=== PATIENT | female | born 1960 | race Caucasian/White ===

== ENCOUNTER 2022-09-27 20:10 | Observation (INO) | payer BC ==
--- NOTE | 2022-09-27 20:48 | ED ---
Abdominal Pain HPI - General Chief Complaint: Abdominal Pain Stated Complaint: Mass on groin Time Seen by Provider: 09/27/22 20:33 Source: patient, RN notes reviewed Mode of arrival: ambulatory Limitations: no limitations - History of Present Illness Initial Comments: This is a 62-year-old female who presents to the emergency department for abdominal pain and swelling. States that yesterday when she woke up, she had a large bulge in her lower abdomen and pelvis area. States that this was at least the size of a baseball. It was also very painful. Throughout the day, it started to shrink. She called EMS and was taken to [facility]. States that she waited for 6 hours and ended up leaving before anything could be done. States that the mass has since resolved, but she wants to know what it was. Denies any history of similar symptoms in the past. Denies any history of abdominal surgeries. She has no nausea, vomiting, diarrhea, or constipation. Currently asymptomatic and not experiencing any pain. Denies any fevers, chills, sore throat, cough, dyspnea, chest pain, palpitations, nausea, vomiting, diarrhea, back pain, or headaches. MD Complaint: abdominal pain - Related Data Allergies Allergy/AdvReac Type Severity Reaction Status Date / Time Penicillins Allergy Unknown Verified 09/27/22 20:18 Childhood Review of Systems ROS Statement: Those systems with pertinent positive or pertinent negative responses have been documented in the HPI. ROS Other: All systems not noted in ROS Statement are negative. Past Medical History Past Medical History: Hypertension, Thyroid Disorder History of Any Multi-Drug Resistant Organisms: None Reported Past Surgical History: Joint Replacement Additional Past Surgical History / Comment(s): meredith hip Past Psychological History: No Psychological Hx Reported Smoking Status: Current every day smoker Past Alcohol Use History: None Reported Past Drug Use History: Marijuana General Exam Limitations: no limitations General appearance: alert, in no apparent distress Head exam: Present: atraumatic, normocephalic, normal inspection Respiratory exam: Present: normal lung sounds bilaterally. Absent: respiratory distress, wheezes, rales, rhonchi, stridor Cardiovascular Exam: Present: regular rate, normal rhythm, normal heart sounds. Absent: systolic murmur, diastolic murmur, rubs, gallop, clicks GI/Abdominal exam: Present: soft, normal bowel sounds. Absent: distended, tenderness, guarding, rebound, rigid Neurological exam: Present: alert, oriented X3, CN II-XII intact Psychiatric exam: Present: normal affect, normal mood Skin exam: Present: warm, dry, intact, normal color. Absent: rash Course Vital Signs 09/27/22 09/27/22 20:12 22:05 Temperature 98.3 F Pulse Rate 93 80 Respiratory 20 18 Rate Blood Pressure 169/88 161/91 O2 Sat by Pulse 96 96 Oximetry Medical Decision Making - Medical Decision Making This is a 62-year-old female who presents to the emergency department for abdominal pain. Was pt. sent in by a medical professional or institution? @ -No Did you speak to anyone other than the patient for history? @ -Her daughter Did you review nursing and triage notes? @ -Yes, and I agree, it is accurate with regards to the patient's symptoms. Were old charts reviewed? @ -No Differential Diagnosis? @ -Differential Abdominal Pain Women: Appendicitis, Cholecystitis, diverticulosis, ischemic bowel, pancreatitis, hepatitis, UTI, gastroenteritis, AAA, incarcerated hernia, bowel obstruction, constipation, inflammatory bowel, hepatitis, peptic ulcer disease, splenic infarction, perforated viscus, vulvitis, ovarian torsion, PID, kidney stone, p lacenta abruption, this is not meant to be an all-inclusive list CT interpreted by me (1pt min.)? @ -Computed tomography scan of the abdomen and pelvis obtained. My interpretation identifies an incarcerated left inguinal hernia. What testing was considered but not performed? (CT, X-rays, U/S, labs)? Why? @ -None What meds were considered but not given? Why? @ -None Did you discuss the management of the patient with other professionals? @ -Yes, Dr. Cardenas who accepts the patient for admission and requests she be kept NPO. Did you reconcile home meds? @ -No Was smoking cessation discussed for >3mins.? @ -No Was critical care preformed (if so, how long)? @ -No Were there social determinants of health that impacted care today? How? (Homelessness, low income, unemployed, alcoholism, drug addiction, transportat ion, low edu. Level, literacy, decrease access to med. care, [facility], rehab)? @ -No Was there de-escalation of care discussed even if they declined? (Discuss DNR or withdrawal of care, Hospice)? @ -No What co-morbidities impacted this encounter? (DM, HTN, Smoking, COPD, CAD, Cancer, CVA, Hep., AIDS, mental health diagnosis, sleep apnea, morbid obesity)? @ -None Was patient admitted / discharged? @ -Admitted. Lab work obtained revealing minor leukocytosis, and was otherwise nonactionable. Computed tomography scan of the abdomen and pelvis obtained revealing an incarcerated left inguinal hernia containing small bowel loops. No evidence of small bowel obstruction. Patient currently asymptomatic. However, this morning she could not move or get off of the floor because of the severity of her pain. Patient currently has no bulges or palpable hernias on exam. Case discussed with Dr. Cardenas, who will admit patient and evaluate her in the morning. Will keep patient NPO for the meantime as well. EM consulted for medical management. Undiagnosed new problem with uncertain prognosis? @ -None Drug Therapy requiring intensive monitoring for toxicity (Heparin, Nitro, Insulin, Cardizem)? @ -None Were any procedures done? @ -None Diagnosis/symptom? @ -Incarcerated left inguinal hernia Acute, or Chronic, or Acute on Chronic? @ -Acute Uncomplicated (without systemic symptoms) or Complicated (systemic symptoms)? @ -Complicated Side effects of treatment? @ -None Exacerbation, Progression, or Severe Exacerbation] @ -Not applicable Poses a threat to life or bodily function? @ -Yes This case was discussed in detail with the attending ED physician, Dr. Raya. Presentation, findings, and treatment plan discussed in detail as well. - Lab Data Result diagrams: 09/27/22 20:51 09/27/22 20:51 Lab Results 09/27/22 09/27/22 09/27/22 Range/Units 20:51 20:51 20:51 WBC 12.5 H (3.8-10.6) k/uL RBC 4.81 (3.80-5.40) m/uL Hgb 15.0 (11.4-16.0) gm/dL Hct 44.3 (34.0-46.0) % MCV 92.1 (80.0-100.0) fL MCH 31.3 (25.0-35.0) pg MCHC 34.0 (31.0-37.0) g/dL RDW 11.9 (11.5-15.5) % Plt Count 341 (150-450) k/uL MPV 7.4 Neutrophils % 71 % Lymphocytes % 23 % Monocytes % 3 % Eosinophils % 1 % Basophils % 0 % Neutrophils # 8.9 H (1.3-7.7) k/uL Lymphocytes # 2.9 (1.0-4.8) k/uL Monocytes # 0.4 (0-1.0) k/uL Eosinophils # 0.1 (0-0.7) k/uL Basophils # 0.0 (0-0.2) k/uL Sodium 131 L (137-145) mmol/L Potassium 3.6 (3.5-5.1) mmol/L Chloride 98 (98-107) mmol/L Carbon Dioxide 24 (22-30) mmol/L Anion Gap 9 mmol/L BUN 8 (7-17) mg/dL Creatinine 0.46 L (0.52-1.04) mg/dL Est GFR (CKD-EPI)AfAm >90 (>60 ml/min/1.73 sqM) Est GFR (CKD-EPI)NonAf >90 (>60 ml/min/1.73 sqM) Glucose 116 H (74-99) mg/dL Plasma Lactic Acid Marc (0.7-2.0) mmol/L Calcium 9.2 (8.4-10.2) mg/dL Total Bilirubin 0.5 (0.2-1.3) mg/dL AST 26 (14-36) U/L ALT 25 (4-34) U/L Alkaline Phosphatase 82 (38-126) U/L C-Reactive Protein 1.2 H (<1.0) mg/dL Total Protein 6.6 (6.3-8.2) g/dL Albumin 3.8 (3.5-5.0) g/dL Urine Color Colorless Urine Appearance Clear (Clear) Urine pH 6.0 (5.0-8.0) Ur Specific [place] 1.017 (1.001-1.035) Urine Protein Negative (Negative) Urine Glucose (UA) Negative (Negative) Urine Ketones Negative (Negative) Urine Blood Trace H (Negative) Urine Nitrite Negative (Negative) Urine Bilirubin Negative (Negative) Urine Urobilinogen <2.0 (<2.0) mg/dL Ur Leukocyte Esterase Negative (Negative) Urine RBC 1 (0-5) /hpf Urine WBC 1 (0-5) /hpf Ur Squamous Epith Cells <1 (0-4) /hpf 09/27/22 Range/Units 20:51 WBC (3.8-10.6) k/uL RBC (3.80-5.40) m/uL Hgb (11.4-16.0) gm/dL Hct (34.0-46.0) % MCV (80.0-100.0) fL MCH (25.0-35.0) pg MCHC (31.0-37.0) g/dL RDW (11.5-15.5) % Plt Count (150-450) k/uL MPV Neutrophils % % Lymphocytes % % Monocytes % % Eosinophils % % Basophils % % Neutrophils # (1.3-7.7) k/uL Lymphocytes # (1.0-4.8) k/uL Monocytes # (0-1.0) k/uL Eosinophils # (0-0.7) k/uL Basophils # (0-0.2) k/uL Sodium (137-145) mmol/L Potassium (3.5-5.1) mmol/L Chloride (98-107) mmol/L Carbon Dioxide (22-30) mmol/L Anion Gap mmol/L BUN (7-17) mg/dL Creatinine (0.52-1.04) mg/dL Est GFR (CKD-EPI)AfAm (>60 ml/min/1.73 sqM) Est GFR (CKD-EPI)NonAf (>60 ml/min/1.73 sqM) Glucose (74-99) mg/dL Plasma Lactic Acid Marc 1.1 (0.7-2.0) mmol/L Calcium (8.4-10.2) mg/dL Total Bilirubin (0.2-1.3) mg/dL AST (14-36) U/L ALT (4-34) U/L Alkaline Phosphatase (38-126) U/L C-Reactive Protein (<1.0) mg/dL Total Protein (6.3-8.2) g/dL Albumin (3.5-5.0) g/dL Urine Color Urine Appearance (Clear) Urine pH (5.0-8.0) Ur Specific [place] (1.001-1.035) Urine Protein (Negative) Urine Glucose (UA) (Negative) Urine Ketones (Negative) Urine Blood (Negative) Urine Nitrite (Negative) Urine Bilirubin (Negative) Urine Urobilinogen (<2.0) mg/dL Ur Leukocyte Esterase (Negative) Urine RBC (0-5) /hpf Urine WBC (0-5) /hpf Ur Squamous Epith Cells (0-4) /hpf - Radiology Data Radiology results: report reviewed, image reviewed Disposition Clinical Impression: Incarcerated left inguinal hernia Disposition: ADMITTED IP TO THIS [facility] Referrals: Leatha De Jesus DO [Primary Care Provider] - 1-2 days
[2022-09-27 21:18] LABS: Basophils % (A) 0 %; Eosinophils # (A) 0.1 k/uL (0-0.7); Eosinophils % (A) 1 %; HCT 44.3 % (34.0-46.0); Lymphocytes # (A) 2.9 k/uL (1.0-4.8); Lymphocytes % (A) 23 %; MCH 31.3 pg (25.0-35.0); MCV 92.1 fL (80.0-100.0); Mean Platelet Volume 7.4; Monocytes # (A) 0.4 k/uL (0-1.0); Monocytes % (A) 3 %; Neutrophils # (A) 8.9 k/uL (1.3-7.7); Neutrophils % (A) 71 %; Platelet Count 341 k/uL (150-450); RBC 4.81 m/uL (3.80-5.40); RDW 11.9 % (11.5-15.5); WBC 12.5 k/uL (3.8-10.6)
[2022-09-27 21:36] LABS: ALT 25 U/L (4-34); AST 26 U/L (14-36); African American GFR (CKD) >90 (>60 ml/min/1.73 sqM); Albumin 3.8 g/dL (3.5-5.0); Alkaline Phosphatase 82 U/L (38-126); Anion Gap 9 mmol/L; Blood Urea Nitrogen 8 mg/dL (7-17); C Reactive Protein 1.2 mg/dL (<1.0); Calcium 9.2 mg/dL (8.4-10.2); Carbon Dioxide 24 mmol/L (22-30); Chloride 98 mmol/L (98-107); Glucose 116 mg/dL (74-99); Non-African American GFR(CKD) >90 (>60 ml/min/1.73 sqM); Potassium 3.6 mmol/L (3.5-5.1); Sodium 131 mmol/L (137-145); Total Bilirubin 0.5 mg/dL (0.2-1.3); Total Protein 6.6 g/dL (6.3-8.2)
[2022-09-27] MEDS ORDERED: SODIUM CHLORIDE 0.9% 1,000 ML IV STA (21:52)
--- NOTE | 2022-09-27 22:17 | CT ---
EXAMINATION TYPE: CT abdomen pelvis w con DATE OF EXAM: 09/27/2022 COMPARISON: None HISTORY: pain and bloating CT DLP: 920.6 mGycm Automated exposure control for dose reduction was used. CONTRAST: Performed with IV Contrast, patient injected with 100ml mL of Isovue 300. Images obtained from the diaphragm to the floor of the pelvis with the IV contrast. Lung bases are clear of infiltrate. No pleural effusion. There is mild subsegmental atelectasis right lung base. No pericardial effusion. Liver spleen and stomach pancreas appear intact. The bile ducts are nondilated. There are a few tiny pancreatic calcifications. Gallbladder appears normal. There is no adrenal mass. Kidneys show satisfactory contrast opacification. No hydronephrosis. Ureter s are not dilated. No retroperitoneal adenopathy. There is small amount of low-density fluid in the p yareli. There is bilateral hip prosthesis with metal artifact. No inguinal hernia. No mesenteric edema. Urinary bladder appears intact. There is left inguinal hernia that has incarcera juma small bowel loop. No definite bowel obstruction. Appendix not seen. No sign of thickened appendix . No ascites or free air. There is extraluminal air adjacent to the mid sigmoid colon on the left lat eral wall that is probably diverticula. Lumbar vertebra show some 15% wedging of L1 vertebral body which appears old. There is coarse trabecu la in the L4 vertebral body. This could relate to Paget's disease. The sacroiliac joints are intact. The bony pelvis is intact. IMPRESSION: Small amount of low-density free fluid in the pelvis. There are a few sigmoid diverticula without monty dence of diverticulitis. There are some extraluminal air bubbles on the left lateral wall of the sigm oid colon that are probably diverticula. No fat stranding seen to suggest diverticulitis. Incarcerated left inguinal hernia appears to contain some small bowel without evidence of a small bow el obstruction. There are large bilateral fluid levels down to the sigmoid colon that may indicate so me diarrhea.
[2022-09-27 22:25] LABS: Appearance,Urine Clear (Clear); Bilirubin,Urine Negative (Negative); Blood,Urine Trace (Negative); Color,Urine Colorless; Glucose,Urine (UA) Negative (Negative); Ketones,Urine Negative (Negative); Leukocyte Esterase,Urine Negative (Negative); Nitrite,Urine Negative (Negative); Protein,Urine Negative (Negative); RBC,Urine 1 /hpf (0-5); Specific Gravity,Urine 1.017 (1.001-1.035); Squamous Epithelial Cell,Urine <1 /hpf (0-4); Urobilinogen,Urine <2.0 mg/dL (<2.0); WBC,Urine 1 /hpf (0-5)
[2022-09-27] MEDS ORDERED: ONDANSETRON 4 MG/2 ML VIAL IVP PRN (22:29)
[2022-09-27] MEDS ORDERED: NALOXONE 0.4 MG/ML 1 ML VIAL IV PRN (22:29)
[2022-09-27] MEDS ORDERED: MORPHINE SULFATE 4 MG/ML SYRINGE IVP PRN (22:30)
[2022-09-27] MEDS ORDERED: MORPHINE SULFATE 2 MG/ML SYRINGE IVP PRN (22:30)
[2022-09-28] MEDS ORDERED: LEVOTHYROXINE 88 MCG TAB PO SCH (10:30)
--- NOTE | 2022-09-28 10:39 | P.GSHP ---
History of Present Illness H&P Date: 09/28/22 CHIEF COMPLAINT: Abdominal pain HISTORY OF PRESENT ILLNESS: This is a 62-year-old female who presented to the hospital with complaints of left groin abdominal pain with bulge. Patient reports symptoms started Monday evening she had significant pain in the left groin and suprapubic area. She felt a mass. She was in so much pain she was unable to walk and had called the ambulance which took her to the ER in [place]. Patient reports that she laid flat on her back in the ER for 6 hours and was not seen. She became frustrated and left. Patient reports that the bulge reduced on its own. However, she can't [place] for evaluation to find out what it could've been. She did have a bowel movement last night. Prior to that she had been having loose stools. Denies any nausea or vomiting. No prior history of any hernias. Denies any abdominal surgical history. Computed tomography scan had shown evidence of an incarcerated left inguinal hernia with small bowel. Patient denies any nausea or vomiting. Currently has no abdominal pain. And hernia is reduced. PAST MEDICAL HISTORY: Hypertension, hypothyroidism PAST SURGICAL HISTORY: See below MEDICATIONS: See below ALLERGIES: See below SOCIAL HISTORY: No illicit drug use. Nicotine dependence REVIEW OF SYSTEMS: CONSTITUTIONAL: Denies fever or chills. HEENT: Denies blurred vision, vision changes, or eye pain. Denies hemoptysis CARDIOVASCULAR: Denies chest pain or pressure. RESPIRATORY: No shortness of breath. GASTROINTESTINAL: See HPI for pertinent findings HEMATOLOGIC: Denies bleeding disorders. GENITOURINARY: Denies any blood in urine or increased urinary frequency. SKIN: Denies pruitis. Denies rash. PHYSICAL EXAM: VITAL SIGNS: Reviewed GENERAL: Well-developed in no acute distress. HEENT: No sclera icterus. Extraocular movements grossly intact. Moist buccal mucosa. Head is atraumatic, normocephalic. No nasal drainage. ABDOMEN: Soft. Nondistended. Nontender. No evidence of hernia at this time NEUROLOGIC: Alert and oriented. Cranial nerves II through XII grossly intact. LABORATORY DATA: WBC is 12.5 Hgb 15.0 platelets 341 Sodium is 131 potassium 3.6 creatinine 0.46 Lactic acid 1.1 CRP 1.2 Urinalysis negative for infection IMAGING: Computed tomography scan abdomen and pelvis shows incarcerated left will hernia appears to contain small ball without evidence of small bowel obstruction. T here are large bilateral fluid levels down to the sigmoid colon that may indicate some diarrhea. Small amount of low density fluid in pelvis. There are few sigmoid diverticula without evidence of diverticulitis. There is some intraluminal air bubbles on the left lateral wall of the sigmoid colon that are probably diverticula. No fat stranding seen chest diverticulitis. ASSESSMENT: 1. Left incarcerated inguinal hernia containing small bowel. Currently reduced nontender 2. Abdominal pain PLAN: -Further recommendations forthcoming per surgeon -Keep patient nothing by mouth -Continue supportive care -Medical service consulted for medical management Physician Marble Setter Helper note has been reviewed by physician. Signing provider agrees with the documented findings, assessment, and plan of care. Past Medical History Past Medical History: Hyperlipidemia, Hypertension, Thyroid Disorder History of Any Multi-Drug Resistant Organisms: None Reported Past Surgical History: Joint Replacement Additional Past Surgical History / Comment(s): meredith hip Past Anesthesia/Blood Transfusion Reactions: No Reported Reaction Past Psychological History: No Psychological Hx Reported Smoking Status: Current every day smoker Past Alcohol Use History: None Reported Past Drug Use History: Marijuana Medications and Allergies Home Medications Medication Instructions Recorded Confirmed Type Cholecalciferol (Vitamin D3) 75 mcg PO DAILY 09/28/22 09/28/22 History [Vitamin D3 (3000 Iu)] L.acidoph,Paracasei, B.lactis 1 cap PO HS 09/28/22 09/28/22 History [Probiotic] Levothyroxine Sodium [Synthroid] 175 mcg PO MOTUWETHFR 09/28/22 09/28/22 History Levothyroxine Sodium [Synthroid] 350 mcg PO SUSA 09/28/22 09/28/22 History Magnesium Oxide [Magnesium] 500 mg PO DAILY 09/28/22 09/28/22 History Phytosterol/Pantethine [Cholestoff 1 cap PO DAILY 09/28/22 09/28/22 History Complete 300Mg Sfgl] Sertraline [Zoloft] 100 mg PO DAILY 09/28/22 09/28/22 History Ubidecarenone [Co Q-10] 300 mg PO DAILY 09/28/22 09/28/22 History atenoloL [Tenormin] 25 mg PO DAILY 09/28/22 09/28/22 History lisinopriL [Zestril] 30 mg PO DAILY 09/28/22 09/28/22 History Allergies Allergy/AdvReac Type Severity Reaction Status Date / Time Penicillins Allergy see comment Verified 09/28/22 07:08 Surgical - Exam Vital Signs Temp Pulse Resp BP Pulse Ox 98.3 F 93 20 169/88 96 09/27/22 20:12 09/27/22 20:12 09/27/22 20:12 09/27/22 20:12 09/27/22 20:12 Results - Labs 09/27/22 20:51 09/27/22 20:51 Abnormal Lab Results - Last 24 Hours (Table) 09/27/22 09/27/22 09/27/22 Range/Units 20:51 20:51 20:51 WBC 12.5 H (3.8-10.6) k/uL Neutrophils # 8.9 H (1.3-7.7) k/uL Sodium 131 L (137-145) mmol/L Creatinine 0.46 L (0.52-1.04) mg/dL Glucose 116 H (74-99) mg/dL C-Reactive Protein 1.2 H (<1.0) mg/dL Urine Blood Trace H (Negative) Diabetes panel 09/27/22 Range/Units 20:51 Sodium 131 L (137-145) mmol/L Potassium 3.6 (3.5-5.1) mmol/L Chloride 98 (98-107) mmol/L Carbon Dioxide 24 (22-30) mmol/L BUN 8 (7-17) mg/dL Creatinine 0.46 L (0.52-1.04) mg/dL Glucose 116 H (74-99) mg/dL Calcium 9.2 (8.4-10.2) mg/dL AST 26 (14-36) U/L ALT 25 (4-34) U/L Alkaline Phosphatase 82 (38-126) U/L Total Protein 6.6 (6.3-8.2) g/dL Albumin 3.8 (3.5-5.0) g/dL Calcium panel 09/27/22 Range/Units 20:51 Calcium 9.2 (8.4-10.2) mg/dL Albumin 3.8 (3.5-5.0) g/dL Pituitary panel 09/27/22 Range/Units 20:51 Sodium 131 L (137-145) mmol/L Potassium 3.6 (3.5-5.1) mmol/L Chloride 98 (98-107) mmol/L Carbon Dioxide 24 (22-30) mmol/L BUN 8 (7-17) mg/dL Creatinine 0.46 L (0.52-1.04) mg/dL Glucose 116 H (74-99) mg/dL Calcium 9.2 (8.4-10.2) mg/dL Adrenal panel 09/27/22 Range/Units 20:51 Sodium 131 L (137-145) mmol/L Potassium 3.6 (3.5-5.1) mmol/L Chloride 98 (98-107) mmol/L Carbon Dioxide 24 (22-30) mmol/L BUN 8 (7-17) mg/dL Creatinine 0.46 L (0.52-1.04) mg/dL Glucose 116 H (74-99) mg/dL Calcium 9.2 (8.4-10.2) mg/dL Total Bilirubin 0.5 (0.2-1.3) mg/dL AST 26 (14-36) U/L ALT 25 (4-34) U/L Alkaline Phosphatase 82 (38-126) U/L Total Protein 6.6 (6.3-8.2) g/dL Albumin 3.8 (3.5-5.0) g/dL
--- NOTE | 2022-09-28 12:52 | P.DS ---
Providers Date of admission: 09/27/22 22:31 Expected date of discharge: 09/28/22 Attending physician: Bebeto Cardenas Consults: 09/27/22 22:29 Consult Physician Urgent Consulting Provider: Shannan Messer Consult Reason/Comments: medical management Do you want consulting provider notified?: Yes, Notify in am Primary care physician: Leatha De Jesus Hospital Course: Discharge diagnosis 1. Left incarcerated inguinal hernia containing small bowel. Currently reduced and nontender Hospital course This is a 62-year-old female who presented to the hospital with complaints of left groin abdominal pain with bulge. Patient reports symptoms started Monday evening she had significant pain in the left groin and suprapubic area. She felt a mass. Patient reports that the bulge reduced on its own. She is no longer having any pain. She is a lab bowel movements. She did have a CAT scan on admission that showed an incarcerated left inguinal hernia appears 16 some small bowel without evidence of a small bowel obstruction. In the hernia is currently reduced. She has no abdominal pain. She has been up and ambulating. She is stable for discharge with plans for outpatient surgery. Please refer to chart for any further details. Physician Packing And Final Assembly Supervisor note has been reviewed by physician. Signing provider agrees with the documented findings, assessment, and plan of care. Patient Condition at Discharge: Stable Plan - Discharge Summary Discharge Rx Participant: No New Discharge Prescriptions: New Nicotine 21Mg/24Hr Patch [Habitrol] 1 each TRANSDERM DAILY #30 patch Continue lisinopriL [Zestril] 30 mg PO DAILY atenoloL [Tenormin] 25 mg PO DAILY Levothyroxine Sodium [Synthroid] 175 mcg PO MOTUWETHFR Ubidecarenone [Co Q-10] 300 mg PO DAILY Magnesium Oxide [Magnesium] 500 mg PO DAILY Sertraline [Zoloft] 100 mg PO DAILY Phytosterol/Pantethine [Cholestoff Complete 300Mg Sfgl] 1 cap PO DAILY Levothyroxine Sodium [Synthroid] 350 mcg PO SUSA Cholecalciferol (Vitamin D3) [Vitamin D3 (3000 Iu)] 75 mcg PO DAILY L.acidoph,Paracasei, B.lactis [Probiotic] 1 cap PO HS Discharge Medication List Cholecalciferol (Vitamin D3) [Vitamin D3 (3000 Iu)] 75 mcg PO DAILY 09/28/22 [History] L.acidoph,Paracasei, B.lactis [Probiotic] 1 cap PO HS 09/28/22 [History] Levothyroxine Sodium [Synthroid] 175 mcg PO MOTUWETHFR 09/28/22 [History] Levothyroxine Sodium [Synthroid] 350 mcg PO SUSA 09/28/22 [History] Magnesium Oxide [Magnesium] 500 mg PO DAILY 09/28/22 [History] Nicotine 21Mg/24Hr Patch [Habitrol] 1 each TRANSDERM DAILY #30 patch 09/28/22 [Rx] Phytosterol/Pantethine [Cholestoff Complete 300Mg Sfgl] 1 cap PO DAILY 09/28/22 [History] Sertraline [Zoloft] 100 mg PO DAILY 09/28/22 [History] Ubidecarenone [Co Q-10] 300 mg PO DAILY 09/28/22 [History] atenoloL [Tenormin] 25 mg PO DAILY 09/28/22 [History] lisinopriL [Zestril] 30 mg PO DAILY 09/28/22 [History] Follow up Appointment(s)/Referral(s): Bebeto Cardenas MD [Medical Doctor] - 1 Week Leatha De Jesus DO [Primary Care Provider] - 1-2 days Discharge Disposition: HOME SELF-CARE
--- NOTE | 2022-09-28 13:36 | P.CONS ---
History of Present Illness - Reason for Consult Consult date: 09/28/22 Medical management - History of Present Illness History of present illness; Patient is a 62-year-old lady with past medical history significant for hypertension, hyperlipidemia, hypothyroidism, who presented to the ER for ab dominal pain. Apparently patient was all right yesterday when she woke up with a large bulge in the lower abdomen. She thought it was the size of a baseball and was very painful. Patient initially went to [facility] but there she waited to be seen by a doctor but could not be seen so she decided to come to [facility]. By the time she came to the [facility] swelling in the abdomen has resolved.She did have a CAT scan on admission that showed an incarcerated left inguinal hernia appears 16 some small bowel without evidence of a small bowel obstruction. Patient was admitted for further evaluation and treatment REVIEW OF SYSTEMS: CONSTITUTIONAL: No fever, no malaise, no fatigue. HEENT: No recent visual problems or hearing problems. Denied any sore throat. CARDIOVASCULAR: No chest pain, orthopnea, PND, no palpitations, no syncope. PULMONARY: No shortness of breath, no cough, no hemoptysis. GASTROINTESTINAL: As mentioned in HPI NEUROLOGICAL: No headaches, no weakness, no numbness. HEMATOLOGICAL: Denies any bleeding or petechiae. GENITOURINARY: Denies any burning micturition, frequency, or urgency. MUSCULOSKELETAL/RHEUMATOLOGICAL: Denies any joint pain, swelling, or any muscle pain. ENDOCRINE: Denies any polyuria or polydipsia. The rest of the 14-point review of systems is negative. PHYSICAL EXAMINATION: GENERAL: The patient is alert and oriented x3, not in any acute distress. Well developed, well nourished. HEENT: Pupils are round and equally reacting to light. EOMI. No scleral icterus. No conjunctival pallor. Normocephalic, atraumatic. No pharyngeal erythema. No thyromegaly. CARDIOVASCULAR: S1 and S2 present. No murmurs, rubs, or gallops. PULMONARY: Chest is clear to auscultation, no wheezing or crackles. ABDOMEN: Soft, nontender, nondistended, normoactive bowel sounds. No palpable organomegaly. MUSCULOSKELETAL: No joint swelling or deformity. EXTREMITIES: No cyanosis, clubbing, or pedal edema. NEUROLOGICAL: Gross neurological examination did not reveal any focal deficits. SKIN: No rashes. Assessment and plan Left incarcerated inguinal hernia Hypertension Hyperlipidemia Hypothyroidism Arthritis Plan; Monitor vital signs Monitor CBC Serial abdominal exams Monitor CMP Resume home meds Follow-up on general surgery recommendations Past Medical History Past Medical History: Hyperlipidemia, Hypertension, Thyroid Disorder History of Any Multi-Drug Resistant Organisms: None Reported Past Surgical History: Joint Replacement Additional Past Surgical History / Comment(s): meredith hip Past Anesthesia/Blood Transfusion Reactions: No Reported Reaction Past Psychological History: No Psychological Hx Reported Smoking Status: Current every day smoker Past Alcohol Use History: None Reported Past Drug Use History: Marijuana Medications and Allergies Home Medications Medication Instructions Recorded Confirmed Type Cholecalciferol (Vitamin D3) 75 mcg PO DAILY 09/28/22 09/28/22 History [Vitamin D3 (3000 Iu)] L.acidoph,Paracasei, B.lactis 1 cap PO HS 09/28/22 09/28/22 History [Probiotic] Levothyroxine Sodium [Synthroid] 175 mcg PO MOTUWETHFR 09/28/22 09/28/22 History Levothyroxine Sodium [Synthroid] 350 mcg PO SUSA 09/28/22 09/28/22 History Magnesium Oxide [Magnesium] 500 mg PO DAILY 09/28/22 09/28/22 History Nicotine 21Mg/24Hr Patch [Habitrol] 1 each TRANSDERM DAILY #30 patch 09/28/22 Rx Phytosterol/Pantethine [Cholestoff 1 cap PO DAILY 09/28/22 09/28/22 History Complete 300Mg Sfgl] Sertraline [Zoloft] 100 mg PO DAILY 09/28/22 09/28/22 History Ubidecarenone [Co Q-10] 300 mg PO DAILY 09/28/22 09/28/22 History atenoloL [Tenormin] 25 mg PO DAILY 09/28/22 09/28/22 History lisinopriL [Zestril] 30 mg PO DAILY 09/28/22 09/28/22 History Allergies Allergy/AdvReac Type Severity Reaction Status Date / Time Penicillins Allergy see comment Verified 09/28/22 07:08 Physical Exam Vitals: Vital Signs Temp Pulse Pulse Resp BP BP Pulse Ox 09/28/22 09:30 61 17 09/28/22 07:34 98.0 F 61 17 136/80 94 L 09/28/22 06:20 97.7 F 77 20 172/79 95 09/28/22 05:53 81 18 156/88 95 09/27/22 22:05 80 18 161/91 96 09/27/22 20:12 98.3 F 93 20 169/88 96 Intake and Output 09/27/22 09/28/22 09/28/22 22:59 06:59 14:59 Other: Weight 72.575 kg 72.575 kg Results CBC & Chem 7: 09/27/22 20:51 09/27/22 20:51 Labs: Abnormal Lab Results - Last 24 Hours (Table) 09/27/22 09/27/22 09/27/22 Range/Units 20:51 20:51 20:51 WBC 12.5 H (3.8-10.6) k/uL Neutrophils # 8.9 H (1.3-7.7) k/uL Sodium 131 L (137-145) mmol/L Creatinine 0.46 L (0.52-1.04) mg/dL Glucose 116 H (74-99) mg/dL C-Reactive Protein 1.2 H (<1.0) mg/dL Urine Blood Trace H (Negative)
[2022-09-28 13:51] VITALS: BP 161/92; PULSE 72; RESP 18; TEMP 98.2
[2022-09-28] MEDS ORDERED: LACTOBACILLUS ACIDOPH & BULGAR 1 EACH PACKET PO SCH (21:00)
[2022-09-29] MEDS ORDERED: lisinopriL 10 MG TAB PO SCH (09:00)
[2022-09-29] MEDS ORDERED: SERTRALINE 100 MG TAB PO SCH (09:00)
[2022-09-29] MEDS ORDERED: CHOLECALCIFEROL 25 MCG (1000 IU) TABLET PO SCH (09:00)
[2022-09-29] MEDS ORDERED: atenoloL 25 MG TAB PO SCH (09:00)
== END 2022-09-28 14:05 | disposition home or self-care (01) ==
LOC: EC 20:10 → INTOOBSV 22:31 → 4SSUR 22:31 → UNDODISIN 09-28 14:05
PROVIDERS: ADMIT Surgery; ATTEND Surgery
DX: K40.30 Unilateral inguinal hernia, with obstruction, without gangrene, not specified as recurrent (principal); I10 Essential (primary) hypertension; F17.200 Nicotine dependence, unspecified, uncomplicated; J98.11 Atelectasis; M48.56XA Collapsed vertebra, not elsewhere classified, lumbar region, initial encounter for fracture; K86.89 Other specified diseases of pancreas; K57.30 Diverticulosis of large intestine without perforation or abscess without bleeding; E03.9 Hypothyroidism, unspecified; E78.5 Hyperlipidemia, unspecified; Z88.0 Allergy status to penicillin; Z96.643 Presence of artificial hip joint, bilateral; Z79.899 Other long term (current) drug therapy; Z79.890 Hormone replacement therapy
CPT/HCPCS: 36415; 74177; 80053; 81001; 83605; 85025; 86140; 96360; 96361; 99285

== ENCOUNTER 2022-10-07 10:48 | Day surgery (SDC) | payer BC ==
--- NOTE | 2022-10-07 09:33 | P.GSHP ---
History of Present Illness H&P Date: 10/07/22 Chief Complaint: Left inguinal hernia 62-year-old female here for elective repair left inguinal hernia. Was hospitalized a few weeks ago with an incarcerated inguinal hernia. This was able to be reduced. Symptoms resolved at that time. Still with intermittent swelling left groin. Past Medical History Past Medical History: Hyperlipidemia, Hypertension, Thyroid Disorder Additional Past Medical History / Comment(s): low platelets when was on methotrexate 2020 History of Any Multi-Drug Resistant Organisms: None Reported Past Surgical History: Joint Replacement Additional Past Surgical History / Comment(s): meredith hip Past Anesthesia/Blood Transfusion Reactions: No Reported Reaction Additional Past Anesthesia/Blood Transfusion Reaction / Comment(s): no blood tx hx Smoking Status: Current every day smoker Medications and Allergies Home Medications Medication Instructions Recorded Confirmed Type Cholecalciferol (Vitamin D3) 5,000 units PO DAILY 09/28/22 10/05/22 History [Vitamin D3 (3000 Iu)] L.acidoph,Paracasei, B.lactis 1 cap PO HS 09/28/22 10/05/22 History [Probiotic] Levothyroxine Sodium [Synthroid] 175 mcg PO MOTUWETHFR 09/28/22 10/05/22 History Levothyroxine Sodium [Synthroid] 350 mcg PO SUSA 09/28/22 10/05/22 History Magnesium Oxide [Magnesium] 500 mg PO DAILY 09/28/22 10/05/22 History Phytosterol/Pantethine [Cholestoff 1 cap PO DAILY 09/28/22 10/05/22 History Complete 300Mg Sfgl] Sertraline [Zoloft] 100 mg PO DAILY 09/28/22 10/05/22 History Ubidecarenone [Co Q-10] 300 mg PO DAILY 09/28/22 10/05/22 History atenoloL [Tenormin] 25 mg PO DAILY 09/28/22 10/05/22 History lisinopriL [Zestril] 30 mg PO DAILY 09/28/22 10/05/22 History Melatonin 10 mg PO DAILY 10/05/22 10/05/22 History Allergies Allergy/AdvReac Type Severity Reaction Status Date / Time Penicillins Allergy see comment Verified 10/05/22 10:47 Surgical - Exam Physical exam: General: Well-developed, well-nourished HEENT: Normocephalic, sclerae nonicteric Abdomen: Nontender, nondistended, reducible left inguinal hernia Extremities: No edema Neuro: Alert and oriented Assessment and Plan (1) Incarcerated left inguinal hernia Narrative/Plan: 62 female with left inguinal hernia. We'll proceed with laparoscopic da Patricia assisted repair left inguinal hernia with mesh, possible open, possible bilateral. Risks of bleeding, infection, recurrence, bladder and bowel injury, numbness, nerve injury, conversion to an open procedure were discussed with the patient. The patient understands and wishes to proceed. Status: Acute Code(s): K40.30 - UNIL INGUINAL HERNIA, W OBST, W/O GANGR, NOT SPCF RECUR SNOMED Code(s): 898370998
[~2022-10-07 10:48] MED LIST: ACETAMINOPHEN TAB 500 MG TAB PO PRN; DEXAMETHASONE SOD PHOSPHATE 4 MG/ML 1 ML VIAL IV ONE; HEPARIN SODIUM,PORCINE/PF 5,000 UNIT/0.5 ML SYRINGE SQ PRN; HYDROmorphone 0.5 MG/0.5 ML SYRINGE IVP PRN; LACTATED RINGERS 1,000 ML IV SCH; MIDAZOLAM 2 MG/2 ML VIAL IV PRN; ONDANSETRON 4 MG/2 ML VIAL IVP ONE; SCOPOLAMINE 1 MG/72 HR PATCH TRANSDERM ONE
[2022-10-07] MEDS ORDERED: ROCURONIUM 10 MG/ML (5 ML VIAL) IV ONE (11:42)
[2022-10-07] MEDS ORDERED: KETOROLAC 15 MG/ML 1 ML VIAL ONE (11:42)
[2022-10-07] MEDS ORDERED: LIDOCAINE 4% LTA KIT (4 ML) TOPICAL ONE (11:42)
[2022-10-07] MEDS ORDERED: PHENYLEPHRINE-0.9% NACL SYG 1,000 MCG/10 ML SYRINGE ONE (11:42)
[2022-10-07] MEDS ORDERED: GLYCOPYRROLATE 0.2 MG/ML 2 ML VIAL ONE (11:42)
[2022-10-07] MEDS ORDERED: ePHEDrine 50 MG/ML 1 ML VIAL ONE (11:42)
[2022-10-07] MEDS ORDERED: MIDAZOLAM 2 MG/2 ML VIAL ONE (11:42)
[2022-10-07] MEDS ORDERED: fentaNYL (PF) 50 MCG/ML 2 ML AMP ONE (11:42)
[2022-10-07] MEDS ORDERED: PROPOFOL 10 MG/ML 20 ML VIAL IV ONE (11:42)
[2022-10-07] MEDS ORDERED: NEOSTIGMINE 1 MG/ML 10 ML VIAL ONE (11:42)
[2022-10-07] MEDS ORDERED: SUCCINYLCHOLINE CHLORIDE 200 MG/10 ML VIAL IV ONE (11:42)
[2022-10-07] MEDS ORDERED: BUPIVACAIN-EPI 0.25%-1:200,000 30 ML VIAL SQ ONE (12:08)
--- NOTE | 2022-10-07 13:36 | P.OP ---
Date of Procedure: 10/07/22 Procedure(s) Performed: PREOPERATIVE DIAGNOSIS: Left inguinal hernia POSTOPERATIVE DIAGNOSIS: Bilateral inguinal hernia, bilateral femoral hernia PROCEDURE: Laparoscopic da Patricia assisted repair bilateral inguinal and femoral hernias with mesh SURGEON: Dr. Cardenas ANESTHESIA: General OPERATIVE PROCEDURE DETAILS: Patient was placed in the operating table in the supine position. The patient was placed under general anesthesia. The abdomen was prepped and draped in usual sterile fashion. A small curvilinear supraumbilical incision was made. The fascia was retracted anteriorly with [place] forceps. The Veress needle was inserted. The saline drop test was normal. Insufflation took place to 15 mmHg. An 8 mm trocar was placed into the peritoneal cavity. 2 additional 8 mm trochars were placed in the right upper quadrant and left upper quadrant under visualization. The robotic arms were then brought in and docked into place. The fenestrated bipolar was used in the left arm and the laparoscopic ruby was utilized in the right arm. A 30 8 mm scope was used in the up position. The peritoneal cavity was inspected. The patient was noted to have bilateral hernias. The patient had at least a femoral and inguinal hernia each bilaterally. A incision was created on the peritoneum across the lower abdomen superior to the bladder. The preperitoneal dissection took place bilaterally at that time. The direct hernia on the right-hand side was reduced using blunt dissection. Jan's ligament and the pubic symphysis were well-visualized. Dissection revealed 3 separate hernias on the left-hand side and 2 hernias on the right hand side. On the left there was a direct inguinal hernia and indirect inguinal hernia and a femoral hernia. On the right there was a femoral hernia and a indirect inguinal hernia. Once we had full dissection in both sacs fully reduced 2 separate 15 x 10 cm Progrip mesh were placed within the abdomen crossing one another in the midline. These were then sutured to the Jan's ligament across the pubic symphysis to the opposite side using a running 30 absorbable V lock suture. The same stitch was then brought to the midline and the mesh was sutured to the abdominal wall in the midline superiorly. This covered all hernia spaces nicely. The peritoneal defect was then closed bilaterally using a absorbable 2-0 VLok suture. The hernia sacs were incorporated into the peritoneal closure to help prevent future recurrence. The pneumoperitoneum was then evacuated. The skin of all 3 sites was closed using a 4-0 Monocryl stitch. Skin glue was then applied. TYPE OF MESH USED: Progrip 15 cm bilateral LOCATION OF MESH: Sub-lay/preperitoneal FIXATION: Absorbable 30V lock PREOPERATIVE DISCUSSION ON SMOKING CESSASTION: Yes PREOPERATIVE DISCUSSION ON MORBID OBESITY: Yes PREOPERATIVE DISCUSSION ON APPROPRIATE USE OF NARCOTIC USE: Yes PREOPERATIVE EDUCATION: Multi Modal, Smoking Cessation and Weight Loss with BMI over 35. DISPOSITION: Stable to recovery room
[2022-10-07 13:49] VITALS: TEMP 96.9
[2022-10-07] MEDS ORDERED: ONDANSETRON 4 MG/2 ML VIAL IVP ONE (14:11)
[2022-10-07] MEDS ORDERED: IBUPROFEN 600 MG TAB PO SCH (16:00)
[2022-10-07 16:11] VITALS: BP 124/62; PULSE 82; RESP 18
[2022-10-07] MEDS ORDERED: ACETAMINOPHEN TAB 325 MG TAB PO SCH (18:00)
== END 2022-10-07 16:25 | disposition home or self-care (01) ==
LOC: OR 10:48
PROVIDERS: ATTEND Surgery
DX: K40.90 Unilateral inguinal hernia, without obstruction or gangrene, not specified as recurrent (principal); I10 Essential (primary) hypertension; E78.5 Hyperlipidemia, unspecified; E07.9 Disorder of thyroid, unspecified; F17.200 Nicotine dependence, unspecified, uncomplicated; Z96.643 Presence of artificial hip joint, bilateral; Z88.0 Allergy status to penicillin; Z79.899 Other long term (current) drug therapy
CPT/HCPCS: 49650; C1781; J2250; J0330; J1100; J2710; J0690; J2405; J3010; J1885; J2370; J2704; J1170; J1644

== ENCOUNTER → 2023-06-20 | Outpatient (CLI) | payer BC ==
--- NOTE | 2023-06-20 17:43 | BD ---
EXAMINATION TYPE: Axial Bone Density DATE OF EXAM: 06/20/2023 CLINICAL HISTORY: 62 years old Female. ICD-10 CODE: MENOPAUSAL [id number] Height: 62 Weight: 164.0 FRAX RISK QUESTIONS: Alcohol (3 or more units per day): no Family History (Parent hip fracture): no Glucocorticoids (More than 3mos): no (Ex: prednisone, prednisolone, methylprednisolone, dexamethasone, and hydrocortisone). History of Fracture in Adulthood: no Secondary Osteoporosis: 1. Type 1 Diabetes: no 2. Hyperthyroidism: no 3. Menopause before 45: yes 4. Malnutrition: no 5. Chronic liver disease: no Rheumatoid Arthritis: yes Current Tobacco Use: yes RISK FACTORS HISTORY OF: Surgery to Spine/Hip(right/left)/Wrist (right/left): bilateral hips MEDICATIONS: thyroid-levothyroxine How Lon. years Additional Medications: Additional History: EXAM MEASUREMENTS: Bone mineral densitometry was performed using the [facility]. Bone mineral density as measured about the Lumbar spine is: ----- L1-L4(G/cm2): 1.051 T Score Values are as follows: ----- L1: -0.4 ----- L2: -0.9 ----- L3: -1.1 ----- L4: -1.8 ----- L1-L4: -1.1 Z Score Values are as follows: ----- L1: 0.9 ----- L2: 0.4 ----- L3: 0.1 ----- L4: -0.5 ----- L1-L4: 0.2 Bone mineral density : baseline Bone mineral density about the R Wrist (g/cm2): 0.490 T Score values are as follows: -----Dist. R+U: -2.6 -----Prox. R+U: -3.2 -----Radius total: -3.1 Z Score values are as follows: -----Dist. R+U: -1.3 -----Prox. R+U: -1.9 -----Radius total: -1.7 Bone mineral density : baseline IMPRESSION: Osteoporosis (T Score less than -2.5). There is increased fracture risk and therapy is usually indicated based on age. Re-Screen 1-2 years. NOTE: T-SCORE=SD OF THE YOUNG ADULT MEAN.
--- NOTE | 2023-06-22 22:24 | MM ---
Reason for Exam: Screening (asymptomatic). Last mammogram was performed 6 year(s) and 4 month(s) ago. Patient History: Menarche at age 10. First Full-Term at age 26. Postmenopausal. Paternal aunt had breast cancer. Paternal cousin had breast cancer. Paternal cousin had breast cancer. Paternal cousin had breast cancer. Risk Values: Sarah 5 year model risk: 1.8%. NCI Lifetime model risk: 7.2%. Prior Study Comparison: 06/09/2010 Bilateral Screening Mammogram, [facility] [place]. 08/11/2014 Bilateral Screening Mammogram, [facility] [place]. 02/13/2017 Bilateral Screening Mammogram, [facility] [place]. Tissue Density: There are scattered fibroglandular densities. Findings: Analyzed By CAD. There is no suspicious group of microcalcifications or new suspicious mass in either breast. Overall Assessment: Negative, BI-RAD 1 Management: Screening Mammogram of both breasts in 1 year. . Patient should continue monthly self-breast exams. A clinical breast exam by your physician is recommended on an annual basis. This exam should not preclude additional follow-up of suspicious palpable abnormalities. Note on Sarah scores and lifetime risk: 1. A Sarah score greater than 3% is considered moderate risk. If this is the case, consider specialist referral to assess eligibility for a risk reducing agent. 2. If overall lifetime risk for the development of breast cancer is 20% or higher, the patient may qualify for future screening with alternating mammogram and breast MRI. Electronically signed and approved by: Jeremie Hester M.D. Radiologist
== END | disposition home or self-care (01) ==
LOC: RADMAMWWP 12:40
PROVIDERS: ATTEND Family Medicine
DX: Z12.31 Encounter for screening mammogram for malignant neoplasm of breast (principal); M81.0 Age-related osteoporosis without current pathological fracture; Z78.0 Asymptomatic menopausal state; Z80.3 Family history of malignant neoplasm of breast
CPT/HCPCS: 77063; 77067; 77080

== ENCOUNTER → 2024-02-08 | Outpatient (CLI) | payer MEDICARE | END | disposition home or self-care (01) | LOC: LABPRL 10:15 | PROVIDERS: ATTEND Nurse Practitioner Family | DX: I10 Essential (primary) hypertension | CPT/HCPCS: 80053; 80061; 84443; 85025 ==